=== PATIENT | female | born 1995 | race Caucasian/White ===

== ENCOUNTER 2020-06-06 14:42 | Emergency (ER) | payer SELFPAY ==
[2020-06-06 15:03] VITALS: BP 112/75
== END 2020-06-06 15:03 | disposition left against medical advice (07) | DRG 951 ==
LOC: ED 14:42 → LWOBS 15:03
DX: Z53.21 Procedure and treatment not carried out due to patient leaving prior to being seen by health care provider (principal)

== ENCOUNTER 2020-11-10 08:51 | Emergency (ER) | payer BC ==
[~2020-11-10] VITALS: Ht 154.9 cm; Wt 81.8 kg
[2020-11-10] MEDS ORDERED: SYMBICORT 80-4.5MCG INHW/SPAC (09:13)
[2020-11-10] MEDS ORDERED: ALBUTEROL SUL0.083 % IN (09:14)
[2020-11-10 10:21] LABS: URINE BILIRUBIN - DIPSTICK NEGATIVE (NEGATIVE); URINE BLOOD DIPSTICK SMALL (NEGATIVE); URINE COLOR YELLOW; URINE GLUCOSE - DIPSTICK NEGATIVE (NEGATIVE); URINE KETONE NEGATIVE (NEGATIVE); URINE LEUK ESTERASE NEGATIVE (NEGATIVE); URINE PH 5.5 (4.5-8.0); URINE PROTEIN - DIPSTICK NEGATIVE (NEG-TRACE); URINE SPECIFIC GRAVITY >=1.030; URINE UROBILINOGEN - DIPSTICK 0.2 E.U./dL (0.2)
[2020-11-10 10:23] LABS: URINE NITRITE - DIPSTICK NEGATIVE (Negative); URINE SQUAMOUS EPITHELIAL CELL FEW EPI/hpf (0-FEW); URINE WBC 0-2 WBC/hpf (0-5)
[2020-11-10] MEDS ORDERED: DOXYCYCLINE100 MG PO (12:23)
[2020-11-10] MEDS ORDERED: PYRIDIUM200 MG PO (12:23)
[2020-11-10 12:40] VITALS: BP 126/67
== END 2020-11-10 12:45 | disposition home or self-care (01) | DRG 696 ==
LOC: ED 08:51
PROVIDERS: Emergency Medicine
DX: R30.0 Dysuria (principal)

== ENCOUNTER 2021-05-09 08:04 | Emergency (ER) | payer SELFPAY ==
[~2021-05-09] VITALS: Ht 154.9 cm; Wt 90.0 kg
[~2021-05-09 08:04] MED LIST: ALBUTEROL SUL0.083 % IN; DOXYCYCLINE100 MG PO; PYRIDIUM200 MG PO; SYMBICORT 80-4.5MCG INHW/SPAC
[2021-05-09 09:08] LABS: URINE BILIRUBIN - DIPSTICK NEGATIVE (NEGATIVE); URINE BLOOD DIPSTICK MODERATE (NEGATIVE); URINE COLOR YELLOW; URINE EPITHELIAL CELLS FEW EPI/hpf (0-FEW); URINE GLUCOSE - DIPSTICK NEGATIVE (NEGATIVE); URINE KETONE NEGATIVE (NEGATIVE); URINE LEUK ESTERASE NEGATIVE (NEGATIVE); URINE NITRITE - DIPSTICK NEGATIVE (Negative); URINE PH 5.5 (4.5-8.0); URINE PROTEIN - DIPSTICK NEGATIVE (NEG-TRACE); URINE SPECIFIC GRAVITY 1.025; URINE UROBILINOGEN - DIPSTICK 0.2 E.U./dL (0.2)
[2021-05-09 09:56] LABS: HEMATOCRIT 41.1 % (37.0-47.0); HEMOGLOBIN 13.6 g/dl (12.0-16.0); IMMATURE GRANULOCYTES 0.4 % (0.0-5.0); MEAN CELL VOLUME 93.2 fL CALC (80.0-100.0); MEAN CORPUSCULAR HGB 30.8 pG CALC (26.0-32.0); MEAN CORPUSCULAR HGB CONC 33.1 g/dL CAL (32.0-36.0); NEUT# 4.92 thou/uL (2.00-7.15); RED BLOOD COUNT 4.41 mill/uL (4.20-5.60); RED CELL DISTRI WIDTH 11.9 % (11.5-15.5)
[2021-05-09 10:13] LABS: ALKALINE PHOSPHATASE 121 u/l (38-126); ANION GAP 13 (6-22 (CALC)); BILIRUBIN, TOTAL 0.9 mg/dL (0.0-1.4); BUN 12 mg/dL (7-17); BUN/CREATININE RATIO 19 (12-20 (CALC)); CARBON DIOXIDE 22 mmol/l (22-30); CHLORIDE 107 mmol/l (95-108); CREATININE 0.6 mg/dL (0.5-1.0); GFR > 60 ML/MIN (>=60 (CALC)); GFR FOR AFR.AMER. > 60 ML/MIN (>=60 (CALC)); POTASSIUM 3.9 mmol/l (3.5-5.1); SGOT/AST 23 u/l (14-36); SODIUM 138 mmol/l (137-146); TOTAL PROTEIN 7.1 g/dL (6.3-8.2)
[2021-05-09] MEDS ORDERED: PYRIDIUM200 MG PO ×2 (10:55→11:58)
[2021-05-09] MEDS ORDERED: KEFLEX500 MG PO ×2 (10:55→11:58)
[2021-05-09 11:56] VITALS: BP 115/72
== END 2021-05-09 11:56 | disposition home or self-care (01) | DRG 690 ==
LOC: ED 08:04
PROVIDERS: Emergency Medicine
DX: N30.90 Cystitis, unspecified without hematuria (principal); N83.201 Unspecified ovarian cyst, right side

== ENCOUNTER 2021-05-10 21:46 | Emergency (ER) | payer SELFPAY ==
[~2021-05-10] VITALS: Ht 154.9 cm; Wt 88.6 kg
[~2021-05-10 21:46] MED LIST changes: +KEFLEX500 MG PO
[2021-05-10 22:24] LABS: URINE BILIRUBIN - DIPSTICK NEGATIVE (NEGATIVE); URINE BLOOD DIPSTICK TRACE-INTACT (NEGATIVE); URINE COLOR YELLOW; URINE GLUCOSE - DIPSTICK NEGATIVE (NEGATIVE); URINE KETONE NEGATIVE (NEGATIVE); URINE LEUK ESTERASE NEGATIVE (NEGATIVE); URINE PROTEIN - DIPSTICK NEGATIVE (NEG-TRACE); URINE SPECIFIC GRAVITY <=1.005; URINE UROBILINOGEN - DIPSTICK 0.2 E.U./dL (0.2)
[2021-05-10 22:24] LABS: HEMATOCRIT 41.1 % (37.0-47.0); HEMOGLOBIN 13.9 g/dl (12.0-16.0); IMMATURE GRANULOCYTES 0.3 % (0.0-5.0); MEAN CELL VOLUME 91.9 fL CALC (80.0-100.0); MEAN CORPUSCULAR HGB 31.1 pG CALC (26.0-32.0); MEAN CORPUSCULAR HGB CONC 33.8 g/dL CAL (32.0-36.0); NEUT# 6.64 thou/uL (2.00-7.15); RED BLOOD COUNT 4.47 mill/uL (4.20-5.60)
[2021-05-10 22:25] LABS: URINE NITRITE - DIPSTICK POSITIVE (Negative)
[2021-05-10 22:32] LABS: URINE BACTERIA FEW hpf; URINE RBC 0-2 RBC/hpf (0-5); URINE SQUAMOUS EPITHELIAL CELL FEW EPI/hpf (0-FEW)
[2021-05-10 22:39] LABS: ALBUMIN 4.4 g/dL (3.2-5.0); ALKALINE PHOSPHATASE 121 u/l (38-126); ANION GAP 20 (6-22 (CALC)); BILIRUBIN, TOTAL 0.7 mg/dL (0.0-1.4); BUN 10 mg/dL (7-17); BUN/CREATININE RATIO 17 (12-20 (CALC)); CARBON DIOXIDE 20 mmol/l (22-30); CHLORIDE 112 mmol/l (95-108); CREATININE 0.6 mg/dL (0.5-1.0); ETHYL ALCOHOL 259 mg/dl (0-30); GFR > 60 ML/MIN (>=60 (CALC)); GFR FOR AFR.AMER. > 60 ML/MIN (>=60 (CALC)); MAGNESIUM 2.2 mg/dL (1.6-2.3); POTASSIUM 3.5 mmol/l (3.5-5.1); SGOT/AST 21 u/l (14-36); SODIUM 148 mmol/l (137-146); TOTAL PROTEIN 7.9 g/dL (6.3-8.2)
[2021-05-11 03:00] VITALS: BP 126/60
== END 2021-05-11 03:20 | disposition designated cancer center or children's hospital (05) | DRG 880 ==
LOC: ED 21:46
PROVIDERS: Family Medicine
DX: R45.851 Suicidal ideations (principal); F10.129 Alcohol abuse with intoxication, unspecified; F32.A Depression, unspecified; Z91.51 Personal history of suicidal behavior
CPT/HCPCS: J2060

== ENCOUNTER 2022-07-01 07:50 | Emergency (ER) | payer SELFPAY ==
[~2022-07-01] VITALS: Ht 154.9 cm; Wt 94.0 kg
[2022-07-01 08:03] VITALS: BP 134/84
[2022-07-01 08:08] VITALS: BP 102/62
[2022-07-01] MEDS ORDERED: ATIVAN1 MG PO (08:15)
[2022-07-01 08:35] LABS: BASO% 0.4 % (0-3); EOS% 4.5 % (0-8); HEMATOCRIT 40.9 % (37.0-47.0); HEMOGLOBIN 13.6 g/dl (12.0-16.0); IMMATURE GRANULOCYTES 0.3 % (0.0-5.0); LYMPH% 29.8 % (15-41); MEAN CELL VOLUME 93.4 fL CALC (80.0-100.0); MEAN CORPUSCULAR HGB 31.1 pG CALC (26.0-32.0); MEAN CORPUSCULAR HGB CONC 33.3 g/dL CAL (32.0-36.0); NEUT# 5.41 thou/uL (2.00-7.15); RED BLOOD COUNT 4.38 mill/uL (4.20-5.60); RED CELL DISTRI WIDTH 12.1 % (11.5-15.5)
[2022-07-01 09:03] LABS: ALBUMIN 4.6 g/dL (3.2-5.0); ALKALINE PHOSPHATASE 105 u/l (38-126); ANION GAP 12 (6-22 (CALC)); BILIRUBIN, TOTAL 0.7 mg/dL (0.02-1.3); BUN 16 mg/dL (7-17); BUN/CREATININE RATIO 26 (12-20 (CALC)); CARBON DIOXIDE 23 mmol/l (22-30); CHLORIDE 109 mmol/l (95-108); CREATININE 0.6 mg/dL (0.5-1.0); GFR FOR AFR.AMER. > 60 ML/MIN (>=60 (CALC)); GFR OTHER RACES > 60 ML/MIN (>=60 (CALC)); LIPASE 169 u/l (23-300); POTASSIUM 4.2 mmol/l (3.5-5.1); SGOT/AST 34 u/l (14-36); TOTAL PROTEIN 7.8 g/dL (6.3-8.2)
[2022-07-01 09:05] LABS: SODIUM 140 mmol/l (137-146)
[2022-07-01 09:28] VITALS: BP 125/79
[2022-07-01 10:16] VITALS: BP 125/79
== END 2022-07-01 10:10 | disposition home or self-care (01) | DRG 601 ==
LOC: ED 07:50
PROVIDERS: Family Medicine
DX: N64.4 Mastodynia (principal); F10.90 Alcohol use, unspecified, uncomplicated

== ENCOUNTER 2022-07-30 06:48 | Emergency (ER) | payer SELFPAY ==
[~2022-07-30] VITALS: Ht 154.9 cm; Wt 81.0 kg
[~2022-07-30 06:48] MED LIST changes: +ATIVAN1 MG PO
[2022-07-30 07:26] VITALS: BP 118/62
[2022-07-30 07:30] VITALS: BP 108/65
[2022-07-30 08:15] LABS: ALBUMIN 4.5 g/dL (3.2-5.0); ALKALINE PHOSPHATASE 104 u/l (38-126); AMYLASE 63 u/l (30-110); ANION GAP 14 (6-22 (CALC)); BILIRUBIN, TOTAL 0.9 mg/dL (0.02-1.3); BUN 17 mg/dL (7-17); BUN/CREATININE RATIO 26 (12-20 (CALC)); CARBON DIOXIDE 22 mmol/l (22-30); CHLORIDE 109 mmol/l (95-108); CREATININE 0.6 mg/dL (0.5-1.0); GFR FOR AFR.AMER. > 60 ML/MIN (>=60 (CALC)); GFR OTHER RACES > 60 ML/MIN (>=60 (CALC)); LIPASE 133 u/l (23-300); POTASSIUM 3.8 mmol/l (3.5-5.1); SGOT/AST 38 u/l (14-36); SODIUM 141 mmol/l (137-146); TOTAL PROTEIN 7.7 g/dL (6.3-8.2)
[2022-07-30 08:33] LABS: BASO% 0.3 % (0-3); EOS% 4.4 % (0-8); HEMATOCRIT 41.9 % (37.0-47.0); HEMOGLOBIN 13.8 g/dl (12.0-16.0); IMMATURE GRANULOCYTES 0.5 % (0.0-5.0); LYMPH% 23.9 % (15-41); MEAN CELL VOLUME 93.9 fL CALC (80.0-100.0); MEAN CORPUSCULAR HGB 30.9 pG CALC (26.0-32.0); MEAN CORPUSCULAR HGB CONC 32.9 g/dL CAL (32.0-36.0); MONO% 6.3 % (2-13); NEUT# 5.72 thou/uL (2.00-7.15); NEUT% 64.6 % (42-76); RED BLOOD COUNT 4.46 mill/uL (4.20-5.60); RED CELL DISTRI WIDTH 11.9 % (11.5-15.5)
[2022-07-30 09:32] LABS: URINE BILIRUBIN - DIPSTICK NEGATIVE (NEGATIVE); URINE BLOOD DIPSTICK MODERATE (NEGATIVE); URINE COLOR YELLOW; URINE GLUCOSE - DIPSTICK NEGATIVE (NEGATIVE); URINE KETONE TRACE mg/dL (NEGATIVE); URINE LEUK ESTERASE NEGATIVE (NEGATIVE); URINE PH 5.5 (4.5-8.0); URINE PROTEIN - DIPSTICK NEGATIVE (NEG-TRACE); URINE SPECIFIC GRAVITY >=1.030; URINE UROBILINOGEN - DIPSTICK 0.2 E.U./dL (0.2)
[2022-07-30 09:33] LABS: URINE EPITHELIAL CELLS FEW EPI/hpf (0-FEW); URINE NITRITE - DIPSTICK NEGATIVE (Negative)
[2022-07-30 10:44] VITALS: BP 108/65
== END 2022-07-30 10:45 | disposition home or self-care (01) | DRG 392 ==
LOC: ED 06:48
PROVIDERS: Family Medicine
DX: R10.9 Unspecified abdominal pain (principal); I10 Essential (primary) hypertension; F41.8 Other specified anxiety disorders

== ENCOUNTER 2022-10-10 09:53 | Emergency (ER) | payer OTHER ==
[~2022-10-10] VITALS: Ht 154.9 cm; Wt 93.4 kg
[2022-10-10 10:02] VITALS: BP 127/89
[2022-10-10] MEDS ORDERED: FLEXERIL5 M1 PO (10:23)
[2022-10-10 10:24] LABS: BASO% 0.5 % (0-3); EOS% 4.3 % (0-8); HEMATOCRIT 40.6 % (37.0-47.0); IMMATURE GRANULOCYTES 0.2 % (0.0-5.0); LYMPH% 33.8 % (15-41); MEAN CELL VOLUME 92.9 fL CALC (80.0-100.0); MEAN CORPUSCULAR HGB 29.7 pG CALC (26.0-32.0); MONO% 7.3 % (2-13); NEUT# 4.62 thou/uL (2.00-7.15); NEUT% 53.9 % (42-76); RED BLOOD COUNT 4.37 mill/uL (4.20-5.60); RED CELL DISTRI WIDTH 11.5 % (11.5-15.5)
[2022-10-10 10:33] VITALS: BP 105/61
[2022-10-10 10:44] LABS: ALBUMIN 4.3 g/dL (3.2-5.0); ALKALINE PHOSPHATASE 107 u/l (38-126); ANION GAP 14 (6-22 (CALC)); BILIRUBIN, TOTAL 0.9 mg/dL (0.02-1.3); BUN 14 mg/dL (7-17); BUN/CREATININE RATIO 23 (12-20 (CALC)); CARBON DIOXIDE 23 mmol/l (22-30); CHLORIDE 108 mmol/l (95-108); CREATININE 0.6 mg/dL (0.5-1.0); GFR FOR AFR.AMER. > 60 ML/MIN (>=60 (CALC)); GFR OTHER RACES > 60 ML/MIN (>=60 (CALC)); SGOT/AST 31 u/l (14-36); SODIUM 141 mmol/l (137-146); TOTAL PROTEIN 7.3 g/dL (6.3-8.2)
[2022-10-10 11:01] VITALS: BP 94/62
[2022-10-10 11:10] VITALS: BP 94/62
== END 2022-10-10 11:30 | disposition home or self-care (01) | DRG 74 ==
LOC: ED 09:53
PROVIDERS: Family Medicine
DX: G62.9 Polyneuropathy, unspecified (principal); R51.9 Headache, unspecified; I10 Essential (primary) hypertension; F41.0 Panic disorder [episodic paroxysmal anxiety]

== ENCOUNTER 2023-01-05 06:52 | Emergency (ER) | payer OTHER ==
[~2023-01-05] VITALS: Ht 154.9 cm; Wt 92.0 kg
[~2023-01-05 06:52] MED LIST changes: +FLEXERIL5 M1 PO
[2023-01-05 08:09] LABS: BASO% 0.4 % (0-3); EOS% 0.7 % (0-8); HEMATOCRIT 42.6 % (37.0-47.0); HEMOGLOBIN 14.2 g/dl (12.0-16.0); IMMATURE GRANULOCYTES 0.7 % (0.0-5.0); LYMPH% 27.6 % (15-41); MEAN CELL VOLUME 90.1 fL CALC (80.0-100.0); MEAN CORPUSCULAR HGB CONC 33.3 g/dL CAL (32.0-36.0); MONO% 4.7 % (2-13); NEUT# 5.65 thou/uL (2.00-7.15); NEUT% 65.9 % (42-76); RED BLOOD COUNT 4.73 mill/uL (4.20-5.60); RED CELL DISTRI WIDTH 11.9 % (11.5-15.5)
[2023-01-05] MEDS ORDERED: MEDDOSEPAK PO (08:17)
[2023-01-05] MEDS ORDERED: ALBUTEROL108 MCG/AC (08:17)
[2023-01-05] MEDS ORDERED: BUDESONIDE/FORM1 AE1 (08:17)
[2023-01-05] MEDS ORDERED: ZPAK PO (08:18)
[2023-01-05] MEDS ORDERED: INDERAL LA60 MG PO (08:19)
[2023-01-05 08:20] LABS: ALBUMIN 4.2 g/dL (3.2-5.0); ALKALINE PHOSPHATASE 99 u/l (38-126); ANION GAP 12 (6-22 (CALC)); BILIRUBIN, TOTAL 0.8 mg/dL (0.02-1.3); BUN 15 mg/dL (7-17); BUN/CREATININE RATIO 25 (12-20 (CALC)); CARBON DIOXIDE 23 mmol/l (22-30); CHLORIDE 109 mmol/l (95-108); CREATININE 0.6 mg/dL (0.5-1.0); GFR FOR AFR.AMER. > 60 ML/MIN (>=60 (CALC)); GFR OTHER RACES > 60 ML/MIN (>=60 (CALC)); POTASSIUM 4.2 mmol/l (3.5-5.1); SGOT/AST 25 u/l (14-36); SODIUM 140 mmol/l (137-146); TOTAL PROTEIN 7.4 g/dL (6.3-8.2)
[2023-01-05] MEDS ORDERED: PROVENTIL0.083 % IN (09:37)
[2023-01-05 09:57] VITALS: BP 113/45
== END 2023-01-05 10:17 | disposition home or self-care (01) | DRG 203 ==
LOC: ED 06:52
PROVIDERS: Family Medicine
DX: J45.901 Unspecified asthma with (acute) exacerbation (principal); I10 Essential (primary) hypertension; E66.9 Obesity, unspecified; F41.0 Panic disorder [episodic paroxysmal anxiety]; F32.A Depression, unspecified; Z20.822 Contact with and (suspected) exposure to COVID-19

== ENCOUNTER 2023-02-05 18:55 | Emergency (ER) | payer OTHER ==
[~2023-02-05] VITALS: Ht 154.9 cm; Wt 89.3 kg
[~2023-02-05 18:55] MED LIST changes: +ALBUTEROL108 MCG/AC; +BUDESONIDE/FORM1 AE1; +INDERAL LA60 MG PO; +MEDDOSEPAK PO; +PROVENTIL0.083 % IN; +ZPAK PO
[2023-02-05 19:07] VITALS: BP 125/77
[2023-02-05 19:15] VITALS: BP 111/68
[2023-02-05 19:20] LABS: URINE BILIRUBIN - DIPSTICK Negative (NEGATIVE); URINE BLOOD DIPSTICK Trace-lysed (NEGATIVE); URINE GLUCOSE - DIPSTICK Negative (NEGATIVE); URINE KETONE 15 mg/dL (NEGATIVE); URINE LEUK ESTERASE Negative (NEGATIVE); URINE NITRITE - DIPSTICK Negative (Negative); URINE PH 5.5 (4.5-8.0); URINE PROTEIN - DIPSTICK Negative (NEG-TRACE); URINE SPECIFIC GRAVITY <=1.005; URINE UROBILINOGEN - DIPSTICK 0.2 E.U./dL (0.2)
[2023-02-05 19:21] LABS: URINE COLOR Yellow
[2023-02-05 19:30] VITALS: BP 102/63
[2023-02-05 19:40] LABS: BASO% 0.2 % (0-3); EOS% 3.7 % (0-8); HEMATOCRIT 40.9 % (37.0-47.0); HEMOGLOBIN 13.9 g/dl (12.0-16.0); IMMATURE GRANULOCYTES 0.1 % (0.0-5.0); LYMPH% 38.8 % (15-41); MEAN CELL VOLUME 90.1 fL CALC (80.0-100.0); MEAN CORPUSCULAR HGB 30.6 pG CALC (26.0-32.0); MONO% 6.8 % (2-13); NEUT# 4.2 thou/uL (2.00-7.15); NEUT% 50.4 % (42-76); RED BLOOD COUNT 4.54 mill/uL (4.20-5.60); RED CELL DISTRI WIDTH 12.5 % (11.5-15.5)
[2023-02-05 19:45] VITALS: BP 106/64
[2023-02-05 19:49] LABS: ALBUMIN 4.4 g/dL (3.2-5.0); ALKALINE PHOSPHATASE 96 u/l (38-126); ANION GAP 14 (6-22 (CALC)); BILIRUBIN, TOTAL 1.3 mg/dL (0.02-1.3); BUN 10 mg/dL (7-17); BUN/CREATININE RATIO 14 (12-20 (CALC)); CARBON DIOXIDE 24 mmol/l (22-30); CHLORIDE 105 mmol/l (95-108); CREATININE 0.7 mg/dL (0.5-1.0); GFR FOR AFR.AMER. > 60 ML/MIN (>=60 (CALC)); GFR OTHER RACES > 60 ML/MIN (>=60 (CALC)); SGOT/AST 31 u/l (14-36); SODIUM 140 mmol/l (137-146); TOTAL PROTEIN 7.8 g/dL (6.3-8.2)
[2023-02-05 21:26] VITALS: BP 90/71
[2023-02-05 21:44] VITALS: BP 90/71
== END 2023-02-05 21:57 | disposition home or self-care (01) ==
LOC: ED 18:55
PROVIDERS: Emergency Medicine
DX: F41.9 Anxiety disorder, unspecified (principal); I10 Essential (primary) hypertension; F32.A Depression, unspecified; Z20.822 Contact with and (suspected) exposure to COVID-19